=== PATIENT | male | born 1975 | race Two or more races ===

== ENCOUNTER 2019-07-06 22:45 | Emergency (ER) | payer BC ==
[~2019-07-06] VITALS: Ht 177.8 cm; Wt 111.9 kg
--- NOTE | 2019-07-06 23:40 | NUR ---
PT IN RADIOLOGY
--- NOTE | 2019-07-06 23:54 | NUR ---
LAB AT BEDSIDE
[2019-07-06 23:59] LABS: BASOPHILS # (AUTO) 0.05 x10^3/uL (0-0.1); BASOPHILS % (AUTO) 1 % (0-1); EOSINOPHILS # (AUTO) 0.13 x10^3/uL (0-0.4); EOSINOPHILS % (AUTO) 3 % (1-7); LYMPHOCYTES # (AUTO) 2.04 x10^3/uL (1-3.4); LYMPHOCYTES % (AUTO) 50 % (22-44); MD NO; MEAN CORPUSCULAR HEMOGLOBIN 30.2 pg (27.5-34.5); MEAN CORPUSCULAR HGB CONC 34.4 g/dL (33.2-36.2); MEAN CORPUSCULAR VOLUME 87.7 fL (81-97); MEAN PLATELET VOLUME 7.2 fL (7.4-10.4); MONOCYTES # (AUTO) 0.37 x10^3/uL (0.2-0.8); MONOCYTES % (AUTO) 9 % (2-9); NEUTROPHILS # (AUTO) 1.51 x10^3/uL (1.8-6.8); NEUTROPHILS % (AUTO) 37 % (42-75); PLATELET COUNT 249 x10^3/uL (130-400); RED BLOOD COUNT 5.16 x10^6/uL (4.38-5.82); RED CELL DISTRIBUTION WIDTH 12.9 % (9.4-14.8)
[2019-07-07] MEDS ORDERED: ALBUTEROL/IPRATROPIUM 2.5MG/0.5MG, 3 ML NPPB ONE
[2019-07-07 00:11] LABS: ANION GAP 6 mmol/L (5-15); CALCIUM 8.4 mg/dL (8.5-10.1); CHLORIDE 110 mmol/L (98-107); CREATININE 1.04 mg/dL (0.7-1.3)
--- NOTE | 2019-07-07 00:15 | NUR ---
PT C/O PRODUCTIVE COUGH WITH CLEAR SPUTUM. STATES WORSE WHEN LAYING DOWN. "FEELS LIKE I'M DROWNING". PT SITTING ON GURNEY WITH NO S/S OF ACUTE RESP DISTRESS. VSS. RESP AT BEDSIDE FOR BREATHING TX. CALL LIGHT IN REACH.
[2019-07-07 00:22] LABS: RAPID INFLUENZA A Negative (Negative); RAPID INFLUENZA B Negative (Negative)
--- NOTE | 2019-07-07 00:55 | NUR ---
ERP at bedside to recheck.
[2019-07-07 01:48] VITALS: BP 137/80
== END 2019-07-07 01:50 | disposition home or self-care (01) ==
LOC: ED 07-07 01:14
DX: J45.909 Unspecified asthma, uncomplicated (principal); B34.9 Viral infection, unspecified; R06.02 Shortness of breath; F17.200 Nicotine dependence, unspecified, uncomplicated; R94.31 Abnormal electrocardiogram [ECG] [EKG]
CPT/HCPCS: 36415; 71046; 80048; 82040; 83880; 84145; 85025; 87400; 93005; 94640; 99285; J7620